=== PATIENT | male | born 1940 | race Caucasian/White ===

== ENCOUNTER 2018-03-16 12:37 | Emergency (ER) | payer MEDICARE, OTHER ==
--- NOTE | 2018-03-16 13:43 | ED Physician Documentation ---
PD HPI LOWER EXT INJURY - Stated complaint Stated Complaint: LEFT FOOT SWELLING - Chief complaint Chief Complaint: Ext Problem - History obtained from History obtained from: Patient - History of Present Illness PD HPI LOW EXT INJURY LOCATION: Left, Foot Type of injury: No: Fall, Twist Timing - onset: How many weeks ago (2) Timing - duration: Weeks (2) Timing - details: Gradual onset (has noted left foot swelling and some redness for 2 weeks, without injury.), Still present, Waxing and waning Associated symptoms: Numbness (chronic due to neuropathy). No: Weakness Contributing factors: No: Anticoagulated, Prior ortho surgery Similar symptoms before: Has not had sx before Recently seen: Not recently seen Review of Systems Constitutional: denies: Fever, Chills, Myalgias Nose: denies: Rhinorrhea / runny nose, Congestion Throat: denies: Sore throat Respiratory: denies: Cough GI: denies: Nausea, Vomiting, Diarrhea Skin: reports: Rash (redness top of the foot). denies: Lesions Neurologic: reports: Numbness (does not have much feeling in his feet) PD PAST MEDICAL HISTORY - Past Medical History Past Medical History: Yes Musculoskeletal: Other Other Past Medical History: Arthritis - Past Surgical History Past Surgical History: Yes Ortho: Hip replacement HEENT: Tonsil/Adenoidectomy - Present Medications Home Medications: Ambulatory Orders Medication Instructions Recorded Confirmed Cephalexin [Keflex] 500 mg PO QID #24 capsule 03/16/18 Mupirocin 1 applic TP TID #15 oint...g. 03/16/18 - Allergies Allergies/Adverse Reactions: Allergies Allergy/AdvReac Type Severity Reaction Status Date / Time No Known Drug Allergies Allergy Verified 06/12/14 16:12 - Social History Does the pt smoke?: No Smoking Status: Never smoker Does the pt drink ETOH?: Yes Does the pt have substance abuse?: No - Immunizations Immunizations are current?: Yes - POLST Patient has POLST: No PD ED PE NORMAL - Vitals Vital signs reviewed: Yes - General General: Alert and oriented X 3, No acute distress, Well developed/nourished - Derm Derm: Warm and dry, Other (left foot with small ulcer to fatty tissue at end of 2nd toe. No drainage right now though he says his socks will have moistur at end of the day. There is very dry skin with superficial cracking of skin diffuse on both feet. Left foot with redness and warmth dorsum to distal ankle area. No swelling nor tenderness above the ankle. ) - Extremities Extremities: No tenderness to palpate, Normal ROM s pain, No calf tenderness / cord - Neuro Neuro: Alert and oriented X 3, No motor deficit, Normal speech, Other ( decreased sensation diffusely in both feet. ) Results - Vitals Vitals: Oxygen O2 Source Room air PD MEDICAL DECISION MAKING - ED course Complexity details: reviewed results, considered differential (has small ulcer tip of 2nd toe and then general redness and swelling of foot. Appears c/w cellulitis. ), d/w patient - Sepsis Event Vital Signs: Oxygen O2 Source Room air Departure - Departure Disposition: Home, Self Care Clinical Impression: Cellulitis of foot Toe ulcer Qualifiers: Laterality: left Non-pressure ulcer stage: limited to breakdown of skin Qualified Code(s): L97.521 - Non-pressure chronic ulcer of other part of left foot limited to breakdown of skin Condition: Stable Record reviewed to determine appropriate education?: Yes Instructions: ED Infec Skin Cellulitis Prescriptions: Cephalexin [Keflex] 500 mg PO QID #24 capsule Mupirocin 1 applic TP TID #15 oint...g. Comments: Cleanse the sores and wounds on the foot twice daily with soap and water and he can soak it temporarily. Apply mupirocin antibiotic ointment to the wounds. Apply moisturizing skin lotion to the rest of the dry skin. Cephalexin 4 times a day for the skin infection of the foot. Use an Frantz wrap periodically to reduce swelling. Recheck if not improved over the next few days. Follow-up with your primary care in about a week, call for an appointment. Discharge Date/Time: 03/16/18 14:54
[2018-03-16] MEDS ORDERED: MUPIROCIN 2% OINT 1 GM TOP STA (13:54)
[2018-03-16] MEDS ORDERED: cephALEXin 250 MG CAPSULE PO STA (13:54)
[2018-03-16 14:56] VITALS: BP 146/81
== END 2018-03-16 14:54 | disposition home or self-care (01) ==
LOC: ED 12:37
DX: L97.521 Non-pressure chronic ulcer of other part of left foot limited to breakdown of skin (principal); L03.116 Cellulitis of left lower limb; M19.90 Unspecified osteoarthritis, unspecified site
CPT/HCPCS: 99283; A9270

== ENCOUNTER 2018-04-13 21:43 | Emergency (ER) | payer MEDICARE, OTHER ==
[2018-04-13 21:55] VITALS: BP 150/84
--- NOTE | 2018-04-13 22:41 | XRAY Report ---
Procedure Date: 04/13/2018 Accession Number: [id number] / [id number] Procedure: XR - Elbow 2 View LT CPT Code: FULL RESULT: EXAM: LEFT ELBOW RADIOGRAPHY EXAM DATE: 04/13/2018 10:04 PM. CLINICAL HISTORY: ARM LAC, LOOK FOR FB. COMPARISON: None. TECHNIQUE: 2 views. FINDINGS: Bones: There is a cortical defect within the dorsal olecranon. Joints: No evidence of dislocation. Soft Tissues: There is a soft tissue defect within the volar medial region. No evidence of radiopaque foreign body. IMPRESSION: 1. There is no evidence of radiopaque foreign body. 2. Cortical defect projecting over the proximal dorsal olecranon could represent age-indeterminate fracture. RADIA
[2018-04-13] MEDS ORDERED: BACITRACIN OINT TOP ONE (22:55)
--- NOTE | 2018-04-13 23:09 | ED Physician Documentation ---
PD HPI UPPER EXT INJURY - Stated complaint Stated Complaint: GLF/LT ARM LAC - Chief complaint Chief Complaint: Laceration - History obtained from History obtained from: Patient - History of Present Illness Location: Right, Arm Type of injury: Laceration Where injury occurred: Home Timing - onset: Today Timing - details: Abrupt onset, Still present Worsened by: Moving, Palpating Similar symptoms before: Has not had sx before Recently seen: Not recently seen - Additonal information Additional information: Patient is a 77 year old male with no significant past medical history who is presenting to the emergency department for arm laceration. Patient cut his arm on a glass table. patient is unsure of his tetanus status. Review of Systems Ten Systems: 10 systems reviewed and negative Skin: reports: Laceration (s) PD PAST MEDICAL HISTORY - Past Medical History Musculoskeletal: Other Other Past Medical History: neuropathy jose feet - Past Surgical History Past Surgical History: Yes Ortho: Hip replacement HEENT: Tonsil/Adenoidectomy - Present Medications Home Medications: Ambulatory Orders Medication Instructions Recorded Confirmed Cephalexin [Keflex] 500 mg PO QID #24 capsule 03/16/18 Mupirocin 1 applic TP TID #15 oint...g. 03/16/18 - Allergies Allergies/Adverse Reactions: Allergies Allergy/AdvReac Type Severity Reaction Status Date / Time No Known Drug Allergies Allergy Verified 04/13/18 21:54 - Social History Does the pt smoke?: No Smoking Status: Never smoker Does the pt drink ETOH?: Yes Does the pt have substance abuse?: No - Immunizations Immunizations are current?: Yes - POLST Patient has POLST: No PD ED PE NORMAL - Vitals Vital signs reviewed: Yes - General General: Alert and oriented X 3 - HEENT HEENT: Atraumatic - Cardiac Cardiac: RRR - Respiratory Respiratory: No respiratory distress - Neuro Neuro: Alert and oriented X 3 PD ED PE EXPANDED - Derm Derm: Laceration(s) - Extremities JOSE UE/Hands Visual: 1 - laceration (8cm laceration of right forearm) Results - Vitals Vitals: Vital Signs - 24 hr 04/13/18 21:52 Temperature 36.5 C Heart Rate 89 Respiratory 20 Rate Blood Pressure 150/84 H O2 Saturation 100 Oxygen O2 Source Room air - Rads (name of study) right elbow Radiology: Final report received (no foreign body appreciated) Procedures - Laceration (location) right arm Length in cm: 8 Wound type: Irregular Neurovascular status: Sensory intact, Vascular intact Tendon involvement: Tendon intact Wound Preparation: Irrigated copiously NS Skin layer closure: Size #-0 - enter number (4), Sutures - enter # (9) Other: Patient tolerated well, Dressing applied, Tetanus UTD PD MEDICAL DECISION MAKING - ED course Complexity details: reviewed old records, reviewed results, re-evaluated patient , considered differential, d/w patient ED course: Patient was seen and examined at bedside. x-ray was performed and showed no acute foreign body. Patient's wound was cleaned and repaired as described above. patient required no further work up and was stable for discharge with outpatient follow up. - Sepsis Event Vital Signs: Vital Signs - 24 hr 04/13/18 21:52 Temperature 36.5 C Heart Rate 89 Respiratory 20 Rate Blood Pressure 150/84 H O2 Saturation 100 Oxygen O2 Source Room air Departure - Departure Disposition: 01 Home, Self Care Clinical Impression: Laceration Condition: Good Instructions: ED Laceration All Follow-Up: Wayne Bethea MD [Primary Care Provider] - As Needed Comments: Your symptoms today are being caused by an arm laceration. the sutures that were placed are dissolvable. You should keep them clean and dry. You should keep it covered for the next 24 hours. You can take motrin or tylenol as needed for pain. you should monitor for signs of infection. You may return to the emergency department at any time for new, worsening or uncontrollable symptoms. Discharge Date/Time: 04/13/18 23:13
== END 2018-04-13 23:13 | disposition home or self-care (01) ==
LOC: ED 21:43
DX: S51.812A Laceration without foreign body of left forearm, initial encounter (principal); G62.9 Polyneuropathy, unspecified; W01.110A Fall on same level from slipping, tripping and stumbling with subsequent striking against sharp glass, initial encounter; Y92.009 Unspecified place in unspecified non-institutional (private) residence as the place of occurrence of the external cause
CPT/HCPCS: 12004; 73070; 99283; A9270

== ENCOUNTER 2018-04-15 14:26 | Emergency (ER) | payer MEDICARE, OTHER ==
[2018-04-15 14:41] VITALS: BP 158/77
--- NOTE | 2018-04-15 17:41 | ED Physician Documentation ---
PD HPI UPPER EXT INJURY - Stated complaint Stated Complaint: RED L ARM - Chief complaint Chief Complaint: Wound - History obtained from History obtained from: Patient - History of Present Illness Location: Left, Elbow Type of injury: Fall Where injury occurred: Home Timing - onset: How many days ago (2) Timing - duration: Days (2) Timing - details: Gradual onset, Still present Improved by: Rest, Immobilization Worsened by: Moving, Palpating Associated symptoms: Discolored Similar symptoms before: Diagnosis (cellulitis/laceration) Recently seen: Emergency Dept - Additonal information Additional information: 77-year-old male fell at home into a glass door and lacerated his left elbow on the medial surface and came in to have this sutured 2 days ago. Today he has noticed a red area above the laceration and he became concerned that this is an infection. He has had infection previously in the form of cellulitis and is coming to the emergency department for evaluation. He does not feel sick he does not have much in way of pain in the area. Review of Systems Constitutional: denies: Fever, Chills, Myalgias Respiratory: denies: Cough GI: denies: Vomiting : denies: Dysuria Skin: reports: Laceration (s), Other (discolored skin over distal arm). denies : Rash Musculoskeletal: denies: Neck pain, Back pain, Extremity pain Neurologic: denies: Generalized weakness, Focal weakness, Numbness PD PAST MEDICAL HISTORY - Past Medical History Musculoskeletal: Other - Past Surgical History Past Surgical History: Yes Ortho: Hip replacement HEENT: Tonsil/Adenoidectomy - Present Medications Home Medications: Ambulatory Orders Medication Instructions Recorded Confirmed No Known Home Medications [No 04/15/18 04/15/18 Known Home Medications] - Allergies Allergies/Adverse Reactions: Allergies Allergy/AdvReac Type Severity Reaction Status Date / Time No Known Drug Allergies Allergy Verified 04/15/18 14:41 - Social History Does the pt smoke?: No Smoking Status: Never smoker Does the pt drink ETOH?: Yes Does the pt have substance abuse?: No - Immunizations Immunizations are current?: Yes - POLST Patient has POLST: No PD ED PE NORMAL - Vitals Vital signs reviewed: Yes (hypertensive) - General General: Alert and oriented X 3, No acute distress, Well developed/nourished - HEENT HEENT: Atraumatic, PERRL, EOMI - Neck Neck: Supple, no meningeal sign - Respiratory Respiratory: No respiratory distress - Derm Derm: Warm and dry, No rash - Extremities Extremities: No deformity, Other (There is a laceration that appears to be healing and without signs of infection. There is a bruise superior to this over the distal humerus medially with coloration consistent with the age of the bruise. ) - Neuro Neuro: Alert and oriented X 3, meter record clerk 2-12 intact, No motor deficit, No sensory deficit, Normal speech Eye Opening: Spontaneous Motor: Obeys Commands Verbal: Oriented GCS Score: 15 - Psych Psych: Normal mood, Normal affect Results - Vitals Vitals: Vital Signs - 24 hr 04/15/18 14:40 Heart Rate 86 Respiratory 18 Rate Blood Pressure 158/77 H O2 Saturation 99 Oxygen O2 Source Room air PD MEDICAL DECISION MAKING - ED course Complexity details: considered differential, d/w patient ED course: 77-year-old male presents for evaluation of a laceration which was sort appear in the emergency department 2 days ago. The laceration appears to be healing well and there is a bruise proximal to this that has discoloration the could be easily confused with an infection. The bruises nonblanching and there is no lymphangitic streaking. - Sepsis Event Vital Signs: Vital Signs - 24 hr 04/15/18 14:40 Heart Rate 86 Respiratory 18 Rate Blood Pressure 158/77 H O2 Saturation 99 Oxygen O2 Source Room air Departure - Departure Disposition: 01 Home, Self Care Clinical Impression: Contusion, arm, upper Qualifiers: Encounter type: initial encounter Laterality: left Qualified Code(s): S40.022A - Contusion of left upper arm, initial encounter Condition: Stable Instructions: ED Wound Care Follow-Up: Wayne Bethea MD [Primary Care Provider] -
== END 2018-04-15 17:48 | disposition home or self-care (01) ==
LOC: ED 14:26
DX: S40.022A Contusion of left upper arm, initial encounter (principal); W19.XXXA Unspecified fall, initial encounter; Y92.009 Unspecified place in unspecified non-institutional (private) residence as the place of occurrence of the external cause
CPT/HCPCS: 99282

== ENCOUNTER 2018-04-20 15:05 | Emergency (ER) | payer MEDICARE, OTHER ==
[2018-04-20] MEDS ORDERED: cephALEXin 250 MG CAPSULE PO STA (17:52)
--- NOTE | 2018-04-20 17:59 | ED Physician Documentation ---
History of Present Illness - Stated complaint Stated Complaint: WOUND DRAINING - Chief complaint Chief Complaint: Laceration - Additonal information Additional information: hx from pt 77 male lac on glass to R inner elbow 04/13 seen in ED and had xray and wound was explored and no FB was identified wound repaired with running absorbable suture pt returned 04/16 with swelling and concern for infection now red and draining otherwise healthy Review of Systems Constitutional: denies: Fever Skin: reports: Laceration (s) PD PAST MEDICAL HISTORY - Past Medical History Past Medical History: No Musculoskeletal: Other - Past Surgical History Past Surgical History: Yes Ortho: Hip replacement HEENT: Tonsil/Adenoidectomy - Present Medications Home Medications: Ambulatory Orders Medication Instructions Recorded Confirmed Cephalexin [Keflex] 500 mg PO Q6H #28 capsule 04/20/18 - Allergies Allergies/Adverse Reactions: Allergies Allergy/AdvReac Type Severity Reaction Status Date / Time No Known Drug Allergies Allergy Verified 04/15/18 14:41 - Social History Does the pt smoke?: No Smoking Status: Never smoker Does the pt drink ETOH?: Yes Does the pt have substance abuse?: No - Immunizations Immunizations are current?: Yes - POLST Patient has POLST: No PD ED PE NORMAL - Vitals Vital signs reviewed: Yes - Extremities Extremities: Other (R inner elbow with l shaped lac distal protion with serous dc, mild erythema along suture line, swelling over lac site is improved per pt, elbow full ROM s limitation, no palpable FB. MSV intact) Results - Vitals Vitals: Vital Signs - 24 hr 04/20/18 15:18 Temperature 36.3 C L Heart Rate 82 Respiratory 16 Rate Blood Pressure 150/72 H O2 Saturation 100 Oxygen O2 Source Room air PD MEDICAL DECISION MAKING - ED course ED course: tried to remove the sutured over the draining portion of the lac but they are now friable and it is a running suture and wound it already approximating so this proved difficult, was able to open wound enough to allow some drainage out which was sent for cx no hx MRSA rx keflex - Sepsis Event Vital Signs: Vital Signs - 24 hr 04/20/18 15:18 Temperature 36.3 C L Heart Rate 82 Respiratory 16 Rate Blood Pressure 150/72 H O2 Saturation 100 Oxygen O2 Source Room air Departure - Departure Disposition: 01 Home, Self Care Clinical Impression: Infected laceration Condition: Good Instructions: ED Laceration Repair Infec Follow-Up: Wayne Bethea MD [Primary Care Provider] - (for a recheck in 48 hr) Prescriptions: Cephalexin [Keflex] 500 mg PO Q6H #28 capsule
[2018-04-20 18:15] VITALS: BP 161/84
== END 2018-04-20 18:16 | disposition home or self-care (01) ==
LOC: ED 15:05
DX: S51.011A Laceration without foreign body of right elbow, initial encounter (principal); L08.9 Local infection of the skin and subcutaneous tissue, unspecified
CPT/HCPCS: 99283; A9270

== ENCOUNTER 2022-10-10 14:16 | Emergency (ER) | payer MEDICARE, OTHER ==
--- NOTE | 2022-10-10 14:45 | ED Physician Documentation ---
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 Started about 3 weeks ago. There was no specific injury. He points above the lateral pelvic brim on the right as the site of pain. It is much worse if he walks or moves a certain way. It is associated with constipation and decreased urine output. He had a remote hip replacement on that side in 2005. He declines pain medication for this. Review of Systems Constitutional: denies: Fever, Chills, Fatigue Nose: denies: Rhinorrhea / runny nose, Congestion Cardiac: denies: Chest pain / pressure, Palpitations Respiratory: denies: Dyspnea, Cough PD PAST MEDICAL HISTORY - Past Medical History Past Medical History: No Musculoskeletal: Other - Past Surgical History Past Surgical History: Yes Ortho: Hip replacement HEENT: Tonsil/Adenoidectomy - Present Medications Home Medications: Ambulatory Orders Medication Instructions Recorded Confirmed Gabapentin [Neurontin] 100 mg PO TID #90 10/10/22 - Allergies Allergies/Adverse Reactions: Allergies Allergy/AdvReac Type Severity Reaction Status Date / Time No Known Drug Allergies Allergy Verified 10/10/22 14:27 - Social History Does the pt smoke?: No Smoking Status: Never smoker Does the pt drink ETOH?: Yes Does the pt have substance abuse?: No - Immunizations Immunizations are current?: Yes - POLST Patient has POLST: No PD ED PE NORMAL - Vitals Vital signs reviewed: Yes - General General: Alert and oriented X 3, No acute distress - Cardiac Cardiac: RRR, No murmur - Respiratory Respiratory: No respiratory distress, Clear bilaterally - Abdomen Abdomen: Normal bowel sounds, Soft, Other (Very mild right lower quadrant pain without surgical signs) - Back Back: Other (Some tenderness of the right low back. He is wearing a lidocaine patch over the lower lumbar spine. No spinal tenderness.) - Derm Derm: Normal color, Warm and dry - Extremities Extremities: Other (I am not able to elicit any hip pain with palpation or with internal or external rotation on the right.) - Neuro Neuro: Alert and oriented X 3, health and wellness sales consultant 2-12 intact, No motor deficit, Other (Diminished sensation in both lower extremities related to his known neuropathy. That said it is symmetric.) Eye Opening: Spontaneous Motor: Obeys Commands Verbal: Oriented GCS Score: 15 Results - Vitals Vitals: Vital Signs - 24 hr 10/10/22 10/10/22 14:22 16:27 Temperature 36.8 C Heart Rate 75 65 Respiratory 16 15 Rate Blood Pressure 175/88 H 159/117 H O2 Saturation 100 100 Oxygen O2 Source Room air - Labs Labs: Laboratory Tests 10/10/22 10/10/22 10/10/22 15:06 15:06 16:25 WBC 8.3 RBC 4.79 Hgb 16.5 Hct 48.1 MCV 100.4 H MCH 34.4 H MCHC 34.3 RDW 13.1 Plt Count 178 MPV 8.8 Neut # (Auto) 5.8 Lymph # (Auto) 1.5 King # (Auto) 0.8 Eos # (Auto) 0.2 Baso # (Auto) 0.0 Absolute Nucleated RBC 0.00 Nucleated RBC % 0.0 Sodium 139 Potassium 3.9 Chloride 104 Carbon Dioxide 29 Anion Gap 6.0 BUN 13 Creatinine 0.8 Estimated GFR (MDRD) 93 Glucose 114 H Calcium 9.6 Total Bilirubin 1.1 H AST 27 ALT 21 Alkaline Phosphatase 90 Total Protein 8.1 Albumin 4.4 Globulin 3.7 Albumin/Globulin Ratio 1.2 Urine Color YELLOW Urine Clarity CLEAR Urine pH 7.5 Ur Specific [place] 1.020 Urine Protein TRACE Urine Glucose (UA) NEGATIVE Urine Ketones NEGATIVE Urine Occult Blood NEGATIVE Urine Nitrite NEGATIVE Urine Bilirubin NEGATIVE Urine Urobilinogen 2 H Ur Leukocyte Esterase NEGATIVE Ur Microscopic Review NOT INDICATED Urine Culture Comments NOT INDICATED - Rads (name of study) Three-view x-ray of the right hip demonstrates intact arthroplasty with extensive heterotopic bone formation Radiology: Final report received, EMP read indepedently CT of the lumbar spine showing DDD with stenosis and foraminal narrowing at multiple levels Radiology: Final report received, EMP read indepedently CT A/P- NAD Radiology: Final report received, EMP read indepedently PD Medical Decision Making - ED course ED course: 82-year-old gentleman presents with right hip pain. It is not reproducible with motion of the right hip so less likely to be the hip joint itself. So concern for referred pain from an internal abdominal organ or sciatica. Hip x-ray demonstrates heterotopic formation of bone. CBC is unremarkable. CMP unremarkable. Urine unremarkable. CT of the lumbar spine showing multilevel DDD and spinal stenosis with bilateral neuroforaminal narrowing at multiple levels. This may be causing referred pain and will trial gabapentin pending spine follow-up. 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 Departure - Departure Disposition: Home, Self Care Clinical Impression: Right hip pain Radiculopathy Qualifiers: Spinal region: lumbar Qualified Code(s): M54.16 - Radiculopathy, lumbar region Condition: Good Record reviewed to determine appropriate education?: Yes Instructions: ED Sciatica Prescriptions: Gabapentin [Neurontin] 100 mg PO TID #90 Comments: Ky, as discussed, although you have heterotopic bone formation on the x-ray of your right hip, the lack of pain when we move your hip makes this less likely, I do wonder if the your pain is related to the multilevel degenerative disease with bilateral foraminal narrowing we saw in your lumbar spine. I think it is very reasonable for you to follow-up with a resource management specialist for consideration of whether this is causing your current symptomatology. Take the copy of the CAT scan on CD with you to set appointment. In the interim we are going to trial gabapentin, I am starting a very low-dose that can be taken as needed but you can double the dose if it is ineffective. Russ Mathews M.D. Neurosurgery, Spine Surgery [address] [place] [address], Suite [facility], [place] [address], [address] [address]
[2022-10-10] MEDS ORDERED: iohexoL-300 100 ML VIAL ONE (14:58)
[2022-10-10 15:12] LABS: BASOPHILS % (AUTO) 0.5 %; EOSINOPHILS # (AUTO) 0.2 10^3/uL (0.0-0.7); EOSINOPHILS % (AUTO) 2.1 %; HCT - HEMATOCRIT 48.1 % (42.0-52.0); HGB - HEMOGLOBIN 16.5 g/dL (14.0-18.0); LYMPHOCYTES # (AUTO) 1.5 10^3/uL (1.5-3.5); LYMPHOCYTES % (AUTO) 17.8 %; MEAN CORPUSCULAR HEMOGLOBIN 34.4 pg (27.0-31.0); MEAN CORPUSCULAR HGB CONC 34.3 g/dL (32.0-36.0); MEAN CORPUSCULAR VOLUME 100.4 fL (80.0-94.0); MEAN PLATELET VOLUME 8.8 fL (7.4-11.4); MONOCYTES # (AUTO) 0.8 10^3/uL (0.0-1.0); MONOCYTES % (AUTO) 9.9 %; NEUTROPHILS # (AUTO) 5.8 10^3/uL (1.5-6.6); NEUTROPHILS % (AUTO) 69.5 %; PLT - PLATELET COUNT 178 10^3/uL (130-450); RED BLOOD COUNT 4.79 10^6/uL (4.70-6.10); RED CELL DISTRIBUTION WIDTH 13.1 % (12.0-15.0); WHITE BLOOD COUNT 8.3 x10^3/uL (4.8-10.8)
--- NOTE | 2022-10-10 15:12 | XRAY Report ---
PROCEDURE: Hip w/Pelvis 2-3V RT INDICATIONS: hip pain TECHNIQUE: AP pelvis with AP and frog-leg lateral view(s) of the right hip(s). COMPARISON: None. FINDINGS: Bones: No fractures or dislocations. Total right hip arthroplasty in place with no evidence of hard kramer failure or loosening. Extensive heterotopic bone formation. Pelvic ring appears intact. No susp icious bony lesions. At least moderate left hip degenerative arthritis. Soft tissues: The visualized bowel gas pattern is normal. No suspicious soft tissue calcifications. IMPRESSION: 1. No evidence of total right hip arthroplasty hardware failure or loosening. 2. Extensive heterotopic bone formation. 3. No acute bony abnormality noted. Reviewed by: David Mckeon MD on 10/10/2022 3:11 PM PST Approved by: David Mckeon MD on 10/10/2022 3:11 PM PST Station ID: [id number]
[2022-10-10 15:46] LABS: ALBUMIN 4.4 g/dL (3.2-5.5); ALBUMIN/GLOBULIN RATIO 1.2 (1.0-2.2); BILIRUBIN,TOTAL 1.1 mg/dL (0.2-1.0); CALCIUM 9.6 mg/dL (8.5-10.3); CREATININE 0.8 mg/dL (0.6-1.2); POTASSIUM 3.9 mmol/L (3.5-5.0); TOTAL PROTEIN 8.1 g/dL (6.7-8.2)
[2022-10-10] MEDS ORDERED: iohexoL-300 100 ML VIAL IVP ONE (16:23)
[2022-10-10 16:32] LABS: BILIRUBIN,URINE NEGATIVE (NEGATIVE); GLUCOSE, URINE (UA) NEGATIVE (NEGATIVE); KETONES,URINE (UA) NEGATIVE (NEGATIVE); LEUKOCYTE ESTERASE, URINE NEGATIVE (NEGATIVE); NITRITE,URINE NEGATIVE (NEGATIVE); OCCULT BLOOD,URINE NEGATIVE (NEGATIVE); PH,URINE 7.5 PH (5.0-7.5); PROTEIN,URINE TRACE mg/dL (NEGATIVE); UROBILINOGEN,URINE 2 E.U./dL (NORMAL)
[2022-10-10 16:35] LABS: CLARITY,URINE CLEAR (CLEAR)
--- NOTE | 2022-10-10 16:43 | CT Report ---
PROCEDURE: LUMBAR SPINE WO INDICATIONS: back pain TECHNIQUE: Noncontrast 3 mm thick sections acquired from the T12 level to the sacrum. Sagittal and coronal refo rmats were constructed. For radiation dose reduction, the following was used: automated exposure co ntrol, adjustment of mA and/or kV according to patient size. COMPARISON: None. FINDINGS: Image quality: Excellent. Bones: There is straightening of normal lumbar lordosis. No acute vertebral body compression fractu res. No suspicious lytic or blastic bony lesions. Bridging osteophyte formation throughout visualize d lower thoracic and lumbar spine. Central spinal caliber is of normal overall caliber. No pars defe cts. T12-L1: No significant disc bulge, canal stenosis or neural foraminal narrowing. L1-L2: Degenerative endplate changes are seen. Vacuum disc phenomenon is noted. Dorsal disc osteop hyte complex formation and bilateral facet arthrosis is seen. There is mild central canal stenosis an d moderate left-sided neural foraminal narrowing. No significant right-sided neural foraminal narrowi ng. L2-L3: Degenerative endplate changes are seen. Broad-based, more left-sided disc bulge and bilater al facet arthrosis is seen causing [id number] central canal stenosis, moderate left-sided neura l foraminal narrowing. L3-L4: Loss of disc height and degenerative endplate changes are seen with broad-based disc bulge a nd bilateral facet arthrosis. There is moderate central canal stenosis and bilateral neural foraminal narrowing. L4-L5: Loss of disc height and degenerative endplate changes are seen. Vacuum disc phenomenon is al so noted. Broad-based disc bulge and bilateral facet arthrosis is seen causing moderate central canal stenosis and moderate to severe bilateral neural foraminal narrowing. L5-S1: There is loss of disc height and degenerative endplate changes. Vacuum disc phenomenon is al so noted. Broad-based disc bulge and bilateral facet arthrosis is seen causing moderate to severe mera tral canal stenosis and bilateral neural foraminal narrowing. Soft tissues: No retroperitoneal masses or hematomas. Visualized aorta is normal in caliber. Moder ate atherosclerotic calcifications in the abdominal aorta is seen. IMPRESSION: 1. Degenerative disc disease throughout lower thoracic and lumbar spine causing various degrees of ce ntral canal stenosis and bilateral neural foraminal narrowing as described in detail above. Finding i s most notably at L4-5 and L5-S1 levels. 2. No acute compression fracture or significant spondylolisthesis. No suspicious bony lesions. Reviewed by: Fili Stanley MD on 10/10/2022 4:41 PM PST Approved by: Fili Stanley MD on 10/10/2022 4:41 PM PST Station ID: [id number]
--- NOTE | 2022-10-10 16:48 | CT Report ---
PROCEDURE: ABDOMEN/PELVIS W INDICATIONS: abd pain iv only CONTRAST: 100ml omni 300 , and no oral contrast was utilized. TECHNIQUE: After the administration of nonionic contrast, 5 mm thick sections acquired from the diaphragms to th e symphysis. 5 mm thick coronal and sagittal reformats were acquired. For radiation dose reduction, the following was used: automated exposure control, adjustment of mA and/or kV according to patient size. COMPARISON: None. FINDINGS: Image quality: Excellent. ABDOMEN: Lung bases: Lung bases are clear. Heart size is normal. Solid organs: Liver and spleen are normal in size and enhancement. Gallbladder appears normal Bili grant system is non dilated. Pancreas enhances normally. No adrenal nodules. Kidneys demonstrate nor mal size and enhancement, without hydronephrosis. Peritoneum and bowel: Bowel loops demonstrate normal wall thickness and caliber. No free fluid or a ir. Nodes and vessels: No retroperitoneal or mesenteric adenopathy by size criteria. Aorta and inferior vena cava are normal in size. Miscellaneous: No ventral hernias. PELVIS: Genitourinary: Bladder wall thickness is normal. Miscellaneous: No inguinal hernias or adenopathy. Bones: No suspicious bony lesions. No vertebral body compression fractures. Prior right total hip arthroplasty. This produces metallic artifact reducing quality of visualization across the lower thir d of the pelvis. IMPRESSION: A definite source of current symptoms is not seen. The lower third of the pelvis is some what poorly visualized due to metal artifact related to the prior right total hip arthroplasty. Howev er, only a small portion of the right hemipelvis inferiorly is not well seen. Reviewed by: Faisal Benito MD on 10/10/2022 4:47 PM PST Approved by: Faisal Benito MD on 10/10/2022 4:47 PM PST Station ID: [id number]
[2022-10-10 17:23] VITALS: BP 189/96
== END 2022-10-10 17:23 | disposition home or self-care (01) ==
LOC: ED 14:16
DX: M54.16 Radiculopathy, lumbar region (principal); M25.551 Pain in right hip; Z96.649 Presence of unspecified artificial hip joint
CPT/HCPCS: 36415; 72131; 73502; 74177; 80053; 81003; 85025; 99284; Q9967; 81001; 87086

== ENCOUNTER 2023-10-01 12:47 | Outpatient (CLI) | payer MEDICARE, OTHER ==
--- NOTE | 2023-10-01 14:35 | MRI Report ---
PROCEDURE: Lumbar Spine WO INDICATIONS: PARESTHESIA OF SKIN TECHNIQUE: Noncontrast sagittal T1 spin echo and T2 fast echo, sagittal STIR, axial T1 and T2 fast spin echo thr ough the lumbar spine. In cases with scoliosis, additional coronal T2 fast spin echo may be performe d. COMPARISON: Correlation is made with prior lumbar CT, 10/10/2022 FINDINGS: Image quality: Diagnostic. Alignment and Curvature: There is minimal retrolisthesis at L1-L2. Minimal retrolisthesis can also b e seen at L3-L4 and L4-L5. Minimal anterolisthesis can be seen at L5-S1. . Mild levoconvex scoliotic curvature is seen. Bone Marrow: Marrow is of normal overall signal. No acute vertebral body compression fractures. Spinal Cord: Conus medullaris terminates at the L1 level. Visualized cord demonstrates normal signa l and size. Paraspinous Soft Tissues: No paravertebral masses. T12-L1: Normal in appearance. L1-L2: At least moderate loss of disc height and disc signal can be seen. Endplate sclerosis can b e seen. Bridging anterior osteophytes are seen. Moderate disc bulge is seen, with a central disc oste ophyte protrusion. Moderate facet hypertrophy is seen. Moderate to severe bilateral neural foraminal narrowing can be seen, with associated compression upon the exiting nerve roots. There is severe mera tral canal narrowing seen, which is exacerbated by prominent epidural fat. L2-L3: Mild to moderate loss of disc height and signal are seen. Moderate disc bulge is seen at t his level. Mild facet hypertrophy is seen. Moderate bilateral neural foraminal narrowing is seen. Mild central canal narrowing is seen. L3-L4: At least moderate loss of disc height and signal are seen. Moderate disc bulge is seen at this level. Moderate facet hypertrophy is seen. There is at least moderate bilateral neuroforamin al narrowing seen. Minimal compression is seen upon the exiting nerve roots. Mild central canal na rrowing is seen. L4-L5: Moderate to severe loss of disc height and disc signal can be seen. Reactive marrow endplat e changes are seen, which are hyperintense on T1-weighted and T2-weighted imaging, without significan t increased STIR signal. 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 Moderate to prominent disc bulge is seen. There is a central disc osteophyte protrusion. At least moderate facet hypertrophy is seen. Moderate to severe bilateral neural foraminal narrowing can be seen, with associated compression upon the exiting nerve roots. At least moderate central ca nal narrowing is seen. L5-S1: Moderate to severe loss of disc height and disc signal can be seen. Moderate disc bulge is seen at this level, which is eccentric to the left. Moderate to prominent facet hypertrophy can be s een on both sides, left worse than right. Moderate to severe bilateral neuroforaminal narrowing is se en, left worse than right. Compression is seen upon the exiting nerve roots. Moderate central kacey l narrowing is seen. IMPRESSION: Multiple levels of significant lumbar spine degenerative change can be seen. Several sites of significant neuroforaminal narrowing can be seen, with associated exiting nerve root compression. Reviewed by: Madhu Wyatt MD on 10/01/2023 1:33 PM AKST Approved by: Madhu Wyatt MD on 10/01/2023 1:33 PM [facility] Station ID: [id number]
== END 2023-10-01 12:48 | disposition home or self-care (01) ==
LOC: DI 12:47
PROVIDERS: ATTEND Family Medicine
DX: R20.2 Paresthesia of skin (principal); M47.26 Other spondylosis with radiculopathy, lumbar region; M48.061 Spinal stenosis, lumbar region without neurogenic claudication; M47.27 Other spondylosis with radiculopathy, lumbosacral region; M48.07 Spinal stenosis, lumbosacral region